=== PATIENT | male | born 1955 | race Caucasian/White ===

== ENCOUNTER → 2019-01-15 | Outpatient (CLI) | payer MEDICARE, OTHER ==
[~2019-01-15] MED LIST: ALPR.5 PO; Amoxicillin500 MG PO; CHLO25; CLAR500 PO; DIPH50; Dazidox10 MG PO; GABA300; GLIP2.5ER; Golytely Solu4000 ML PO; LAVAP17G PO; LINZESS145 MCG PO; LINZESS290 MCG; LORA1 PO; ONDA8 PO; OXYACE5T; OXYC5; Omeprazole20 M1; Ondansetron Odt8 MG PO; PSYL5.85P PO; Roxicodone5 MG PO; Zofran Odt4 MG PO; Zofran Odt4 MG SL
== END | disposition home or self-care (01) ==
LOC: LAB SHORT 05:00 → LAB 05:00 → LAB FUT 01-15 14:45
DX: R10.13 Epigastric pain (principal)
CPT/HCPCS: 87177; 87209

== ENCOUNTER 2019-02-09 08:01 | Day surgery (SDC) | payer MEDICARE, OTHER ==
[~2019-02-09] VITALS: Ht 172.7 cm; Wt 77.0 kg
[~2019-02-09 08:01] MED LIST changes: -CHLO25; +CHLO25 PO; +COMBIVENT RESPIM4 GM INH; -GABA300; +GABA300 PO; -GLIP2.5ER; +GLIP2.5ER PO; -LINZESS290 MCG; +LINZESS290 MCG PO
--- NOTE | 2019-02-09 09:40 | NUR ---
Ambulatory in Day Surgery. Surgical site prepped with 2% Chlorhexidine cloth wipe. History, Chart, Medications and Allergies reviewed before start of procedure. Lungs clear T/O to Auscultation. Patient confirms NPO status and agrees with scheduled surgery. Pre-Op teaching done. Pt verbalizes understanding. Patient States Post-Procedure ride home has been arranged.
--- NOTE | 2019-02-09 13:07 | NUR ---
PATIENT GAVE PERMISSION FOR ME TO CARE FOR HIM TODAY 02/09/19. Discharge instructions reviewed with patient. Patient verbalizes understanding. Copy given to patient to take home. Patient States Post-Procedure ride home has been arranged. Discharged via wheelchair to private car for ride home. PATIENT STATES SURGICAL AREA VERY PAINFUL. PATIENT ALSO STATES HE IS CONFIDENT HE WILL BE ABLE TO MANAGE PAIN AT HOME UPON DISCHARGE.
--- NOTE | 2019-02-09 13:18 | NUR ---
STUDENT NURSE ASSISTING IN STEP DOWN CARE. AGREE WITH HER CHARTING AND CARE
== END 2019-02-09 23:05 | disposition home or self-care (01) ==
LOC: ORSCMMR 08:01 → ORD 09:30 → ORSCMMR 09:30
PROVIDERS: Surgery
PROC: 0YU60JZ Supplement Left Inguinal Region with Synthetic Substitute, Open Approach (ICD-10-PCS; principal; 2019-02-09 09:30)
DX: K40.30 Unilateral inguinal hernia, with obstruction, without gangrene, not specified as recurrent (principal); J44.9 Chronic obstructive pulmonary disease, unspecified; F17.210 Nicotine dependence, cigarettes, uncomplicated; E11.9 Type 2 diabetes mellitus without complications; B19.20 Unspecified viral hepatitis C without hepatic coma; Z79.899 Other long term (current) drug therapy
CPT/HCPCS: 82947; C1781; J0690; J1100; J2250; J2370; J2405; J2704; J3010; J7120